=== PATIENT | male | born 1960 | race Caucasian/White ===

== ENCOUNTER 2020-09-20 07:48 | Outpatient (REF) | payer OTHER, SELFPAY | END 2020-09-20 07:49 | disposition home or self-care (01) | LOC: HO.EMPCOV 07:48 | PROVIDERS: Visit Provider Internal Medicine | DX: Z20.822 Contact with and (suspected) exposure to COVID-19 (principal) | CPT/HCPCS: 36415; C9803; U0003; U0005 ==

== ENCOUNTER 2020-10-14 08:05 | Outpatient (REF) | payer OTHER, SELFPAY ==
[2020-10-14 10:13] LABS: MANUAL DIFF FLAG NO
[2020-10-14 10:18] LABS: Basophils Percent Auto 0.5 % (0-2); Eosinophils Absolute Auto 0.1 X10*3/uL (0.0-0.4); Eosinophils Percent Auto 1.3 % (0-4); Hematocrit 39.5 % (42-52); Hemoglobin 13.4 g/dl (14.0-18.0); Imm Gran Abs Auto 0.01 X10*3/uL (0.00-0.03); Imm Gran Pct Auto 0.3 % (0.0-0.4); Lymphocytes Absolute Auto 1.2 X10*3/uL (1.2-4.9); Lymphocytes Percent Auto 33.4 % (20-40); Mean Corpuscular HGB Conc 33.9 g/dl (31.0-36.0); Mean Corpuscular Hemoglobin 31.7 pg (27.0-33.0); Mean Corpuscular Volume 93.4 fL (80-98); Mean Platelet Volume 9.5 fL (9.4-12.4); Monocytes Absolute Auto 0.4 X10*3/uL (0.1-1.2); Monocytes Percent Auto 11.6 % (2-11); Neutrophils Percent Auto 52.9 % (45-73); Platelet Count 234 X10*3/uL (160-400); Red Blood Count 4.23 X10*6/uL (4.60-5.80); Red Cell Distribution Width 12.2 % (11.0-16.0); White Blood Count 3.7 X10*3/uL (4.8-10.8)
[2020-10-14 10:27] LABS: Estimated Average Glucose 114 mg/dL; Hemoglobin A1c % 5.6 %
[2020-10-14 10:49] LABS: Alanine Aminotransferase 20 U/L (0-40); Albumin Level 4.3 g/dL (3.5-5.0); Alkaline Phosphatase 36 U/L (39-117); Anion Gap 12 (12-20); Aspartate Amino Transferase 24 U/L (5-37); Bilirubin Direct 0.2 mg/dL (0.0-0.5); Bilirubin Total 0.5 mg/dL (0.0-1.0); Blood Urea Nitrogen 8 mg/dL (9-16); Calcium 8.3 mg/dL (8.4-10.2); Carbon Dioxide 25 mmol/L (22-29); Chloride 104 mmol/L (96-108); Cholesterol 199 mg/dL; Estimated Glomerular Filt Rate > 60; Glucose Fasting 99 mg/dL (60-99); HDL Cholesterol 70 mg/dL; LDL Cholesterol Calculated 112 mg/dl; Potassium 4.3 mmol/L (3.3-5.1); Sodium 137 mmol/L (135-145); Total Protein 7.2 g/dL (6.5-8.0); Triglycerides 89 mg/dL
[2020-10-14 11:11] LABS: Vitamin D 25-OH Total 13.9 ng/mL (>30)
== END 2020-10-14 08:06 | disposition home or self-care (01) ==
LOC: HO.10HDL 08:05
PROVIDERS: Visit Provider Internal Medicine
DX: Z00.00 Encounter for general adult medical examination without abnormal findings (principal); E78.5 Hyperlipidemia, unspecified; I10 Essential (primary) hypertension
CPT/HCPCS: 36415; 80048; 80061; 80076; 82306; 83036; 85025

== ENCOUNTER 2021-08-24 08:23 | Outpatient (REF) | payer BC, SELFPAY ==
[2021-08-24 12:38] LABS: Prostate Specific Antigen 0.31 ng/mL (<0.05-4.0)
== END 2021-08-24 08:24 | disposition home or self-care (01) ==
LOC: HO.10HDL 08:23
PROVIDERS: Visit Provider Urology
DX: Z12.5 Encounter for screening for malignant neoplasm of prostate (principal); N40.0 Benign prostatic hyperplasia without lower urinary tract symptoms
CPT/HCPCS: 36415; 84153

== ENCOUNTER 2024-10-22 07:53 | Outpatient (REF) | payer BC, SELFPAY ==
--- OUTSIDE RECORDS SUMMARY | 2024-10-22 07:56 | XMS_ITS | Clinical Summary ---
Author Organization [facility] Address [address] [place] [address] Care Team Providers Care Senior Editor Name Role Phone Lolly Vargas MD Primary Care Provider [phone] Allergies No known active allergies Medications losartan (COZAAR) 100 mg tablet 02/25/2019 Active doxazosin (CARDURA) 8 mg tablet 02/26/2019 Active CARTIA XT 300 mg capsule Take 300 mg by mouth daily. 02/25/2019 Active cetirizine (ZyrTEC) 10 mg tablet Take 10 mg by mouth daily. Active acetaminophen (TYLENOL) 325 mg tablet Take 2 tablets (650 mg total) by mouth every 6 hours. 11/18/2020 Active oxyCODONE IR (ROXICODONE) 5 mg tablet Take 1 tablet (5 mg total) by mouth every 6 hours as needed for pain. Max Daily Amount: 20 mg 10 tablet 11/18/2020 Active Active Problems Problem Noted Date Diagnosed Date Environmental allergies 11/18/2020 GERD (gastroesophageal reflux disease) 1 Tubular adenoma 09/30/2020 Hypertension 02/18/2013 Hyperlipidemia 02/18/2013 Leukopenia 02/18/2013 Immunizations Immunization Administration Dates Next Due Tetanus Toxoid, Reduced Diph theria Toxoid, and Acellular Pertussis Vaccine, Adsorbed 09/16/2013 Family History Medical History Relation Name Comments Other Father Paternal histor y of CABG (CABG) /Paternal history of Lung Cancer Other Mother Maternal histor y of Arthritis Other Sister Sororal history of Hypothyroidism Relation Name Status Comments Father Mother Sister Social History Tobacco Use Types Packs/Day Years Used Date Smoking Tobacco: Never Smokeless Tobacco: Never Comments:: Alcohol Use Standard Drinks/Week Comments Yes 2 (1 standard drink = 0.6 oz pur e alcohol) occasional Sex and Gender Information Value Date Recorded Sex Assigned at Male 11/16/2020 2:31 PM EDT Legal Sex Male 10:18 AM EDT Gender Identity Male 11/16/2020 2:31 PM EDT Sexual Orientation Straight 11/16/2020 2: 31 PM EDT Last Filed Vital Signs Vital Sign Reading Time Taken Comments Blood Pressure 153/86 11/18/2020 7:01 AM EDT Pulse 52 11/18/2020 7:01 AM EDT Temperature 36.4 ??C (97.5 ??F) 11/18/2020 7:01 AM ED T Respiratory Rate 18 11/18/2020 7:01 AM EDT Oxygen Saturation 96% 11/18/2020 7:01 AM EDT Inhaled Oxygen Concentration - - Weight 103.8 kg (228 lb 12.8 oz) 11/16/2020 6:20 AM EDT Height 184 cm (6' 0.44 ) 11/16/2020 6:20 AM EDT Body Mass Index 30.65 11/16/2020 6:20 AM EDT Plan of Treatment Health Maintenance Due Date Last Done Comments HIV Screening 1960 Hepatitis C Screening 1960 Pneumococcal Vaccine: 50+ Years (1 of 1 - PCV) 2010 Zoster Vaccines (1 of 2) 2010 Colonoscopy 03/26/2021 09/23/2020, 09/13, 02/26/2020, Additional history exists Basic Metabolic Panel 11/13/2021 11/13/2020 DTaP,Tdap,and Td Vaccines (2 - Td or Tdap) 09/17/2023 09/16/2013 COVID-19 Vaccine (3 - season) 2024 08/09/2020, 07/06/2020 Alcohol/Substance Use Screening 07/16/2024 Depression Screening and Follow-Up 07/16/2024 Social Drivers of Health Annual Screening 07/16/2024 Influenza Vaccine (Season Ended) 2025 04/13/2020, 05/11/2017 RSV Vaccine (60+ years old and patients) (1 - 1-dose 75+ series) 12/18/2035 Hepatitis B Vaccines Aged Out No long er eligible based on patient's age to complete this topic Procedures * Due to [place] [employer] law, this organization might not be sharing negative HIV tests. Procedure Name Priority Date/Time Associated Diagnosis Comments BASIC METABOLIC PANEL Routine 11/13/2020 11:31 AM EDT Tubular adenoma Preop examination COLONOSCOPY 09/23/2020 from Last 3 Months or Most Recently Relevant to Health Maintenance Results * Due to [place] law, this organization might not be sharing negative HIV tests. * (ABNORMAL) Basic Metabolic Panel (11/13/2020 11:31 AM EDT) NA 134(L) 135 - 145 mmol/L 11/13/2020 12:46 PM EDT [facility] K 4.0 3.5 - 5.3 mmol/L 11/13/2020 12:46 PM EDT [facility] Cl 100 97 - 110 mmol/L 11/13/2020 12:46 PM EDT [facility] CO2 28 24 - 32 mmol/L 11/13/2020 12:46 PM EDT [facility] BUN 8 7 - 23 mg/dL 11/13/2020 12:46 PM EDT [facility] Creatinine 0.80 0.60 - 1.30 mg/dL 11/13/2020 12:46 PM EDT [facility] Glucose 93 70 - 99 mg/dL 11/13/2020 12:46 PM EDT [facility] Calcium 9.2 8.7 - 10.7 mg/dL 11/13/2020 12:46 PM EDT [facility] Anion Gap 6 5 - 15 11/13/2020 12:46 PM EDT [facility] eGFR Non- >90 >=90 mL/min/BS A 11/13/2020 12:46 PM EDT [facility] eGFR >90 >=90 mL/min/BS A 11/13/2020 12:46 PM EDT [facility] Comment: Units = mL/min/1.73 m2 Glomerular Filtration Rate (GFR) is estimated based on the CKD-EPI Creatinine Equation (2009). Stage ?Description ? GFR 1 ? Normal ? >=90 mL/min/BSA 2 ? Mildly decreased GFR ? 60-89 mL/min/BSA 3 ? Moderately decreased GFR ? 30-59 mL/min/BSA 4 ? Severely decreased GFR ? 15-29 mL/min/BSA 5 ? Kidney Failure ? <15 mL/min/BSA Blood Structure of peripheral vein / Unknown Venipuncture / Unknown 11/13/2020 11:31 AM EDT 11/13/2020 12:20 PM EDT us Brittanie Whitley SYSTEMS PLANNER LAB BLOOD ORDERABLES Final Re sult [facility] [address] [place] [address], * COLONOSCOPY (09/23/2020) Narrative Procedure Note Mark Mcintosh MD - 09/23/2020 11:00 AM EST Gastroenterology Patient Name: Krishan Henry Procedure Date: 09/23/2020 11:00 AM Date of : 1960 Admit Type: Outpatient Age: 59 Room: Room 4 Gender: Male Note Status: Finalized Attending MD: Mark Mcintosh MD Procedure: Colonoscopy Indications: Follow-up for history of adenomatous polyps in the colon Providers: Mark Mcintosh MD (Doctor) Referring MD: Lolly Vargas MD (Referring MD) Requesting Provider: Medicines: Monitored Anesthesia Care Complications: No immediate complications. Estimated Blood Loss: Estimated blood loss: none. Procedure: After I obtained informed consent, the scope was passed under direct vision. Throughout the procedure, the patient's blood pressure, pulse, and oxygen saturations were monitored continuously. The [id number] OLYMPUS [id number] was introduced through the anus and advancedto the terminal ileum. The colonoscopy was performedwithout difficulty. The patient tolerated the procedure well. Findings: A 7 mm polyp was found in the ascending colon. The polyp was removed with a cold snare. Resection and retrieval were complete. Polypectomy site in descending clonon showed some nodularity likely representing regrowth. Biopsies taken. Biopsies were taken with acold forceps for histology. Impression: - One 7 mm polyp in the ascending colon, removed with a cold snare. Resected and retrieved. Recommendation: - Await pathology results. - Refer to a colo-rectal surgeon in 2 weeks. - Return to primary care physician PRN. Mark Mcintosh MD 09/23/2020 11:47:34 AM This report has been signed electronically. Number of Addenda: 0 Note Initiated On: 09/23/2020 11:00 AM Mark Mcintosh MD PROVATION PROCEDURES Final Re sult from Last 3 Months or Most Recently Relevant to Health Maintenance Insurance [id number] (Work) [place] [address] [place] [id number] [facility] HMO/POS Advance Directives * Full Code (Latest Code Status on File) Date Activated Date Inactivated Comments 11/16/2020 10:06 AM 11/18/2020 2:28 PM Care Teams Senior Editor Relationship Specialty Start Date End Date Lolly Vargas MD PCP - General 02/01/17
--- OUTSIDE RECORDS SUMMARY | 2024-10-22 07:56 | XMS_ITS ---
Author Organization [facility] Address [address] [place] [phone] Care Team Providers Care Engineering Program Analyst Name Role Phone NONE, NONE Primary Care Provider Unavailmike e Carl Forrester, Corin Rosenthal Medications Medication SIG (Take, Route, Frequency, Duration) Notes Start Date End Date Status Na Sulfate-K Sulfate-Mg Sulf 17.5-3.13-1.6 GM/177ML 177 ml per kit as directed Orally 06/19/2024 Active Encounters Encounter Location Date Provider Diagnosis [facility] [address] [place] [phone] 06/19/2024 Corin Henry Jr Plan Of Treatment Medication Medication Name Sig Start Date Stop Date Notes Na Sulfate-K Sulfate-Mg Sulf 17.5-3.13-1.6 GM/177ML 177 ml per kit as directed Orally 06/19/2024 Progress Notes * CORIN HENRY DDOB:[birth year] (63 yo M)Acc No.[id number]:06/19/2024 Patient:?CORIN HENRY :1960???Age:63 Y???Sex:Male Address:[address] [place] [address], [address] * Refills? Start Na Sulfate-K Sulfate-Mg Sulf Solution, 17.5-3.13-1.6 GM/177ML, Orally, 177 ml per kit as directed * true * Date:? Generated for Printi ng/Faxing/eTransmitting on:?10/22/2024 07:56 AM EDT
--- OUTSIDE RECORDS SUMMARY | 2024-10-22 07:56 | XMS_ITS | Patient Health Record ---
Author Organization [facility] Address [address] [place] [phone] Care Team Providers Care Dry Press Operator Name Role Phone NONE, NONE Primary Care Provider Unavailmike e Carl Forrester, Corin Unavailable Reason For Referral No Information Medications Medication SIG (Take, Route, Frequency, Duration) Notes Start Date End Date Status Na Sulfate-K Sulfate-Mg Sulf 17.5-3.13-1.6 GM/177ML 177 ml per kit as directed Orally 06/19/2024 Active Encounters Encounter Location Date Provider Diagnosis [facility] [address] [place] [phone] 06/19/2024 Corin Henry Jr Plan Of Treatment No Information
--- OUTSIDE RECORDS SUMMARY | 2024-10-22 07:56 | XMS_ITS | Referral Summary ---
Author Organization [facility] Address [address] [place] [address] Care Team Providers Care Unindentured Apprentice Name Role Phone Lolly Vargas MD Primary Care Provider [phone]- [phone] Allergies No known active allergies Medications losartan [...] Environmental allergies 11/18/2020 GERD (gastroesophageal reflux disease) Tubular adenoma 09/30/2020 Hypertension 02/18/2013 Hyperlipidemia 02/18/2013 Leukopenia 02/18/2013 Immunizations Immunization Administration Dates Next Due Tetanus Toxoid, Reduced Diph theria Toxoid, and Acellular Pertussis Vaccine, Adsorbed 09/16/2013 Social History Tobacco Use Types Packs/Day Years [...] 11/16/2020 6:20 AM EDT Plan of Treatment Not on file Procedures * Due to [place] [employer] law, this organization might not be sharing negative HIV tests. Procedure Name Priority Date/Time Associated Diagnosis Comments BASIC METABOLIC PANEL Routine 11/13/2020 11:31 AM EDT Tubular adenoma Preop examination COLONOSCOPY 09/23/2020 from Last 3 Months or Most Recently Relevant to Health Maintenance Results * Due to [place] law, this organization might not be sharing negative HIV tests. * (ABNORMAL) Basic Metabolic Panel (11/13/2020 11:31 AM EDT) NA 134(L) 135 - 145 mmol/L 11/13/2020 12:46 PM EDT [facility] K 4.0 3.5 - 5.3 mmol/L 11/13/2020 12:46 PM EDT [facility] Cl 100 97 - 110 mmol/L 11/13/2020 12:46 PM EDT [facility] CO2 28 24 - 32 mmol/L 11/13/2020 12:46 PM EDT [facility] BUN 8 7 - 23 mg/dL 11/13/2020 12:46 PM EDT [facility] Creatinine 0.80 0.60 - 1.30 mg/dL 11/13/2020 12:46 PM EDT [facility] Glucose 93 70 - 99 mg/dL 11/13/2020 12:46 PM EDT [facility] Calcium 9.2 8.7 - 10.7 mg/dL 11/13/2020 12:46 PM EDT [facility] Anion Gap 6 5 - 15 11/13/2020 12:46 PM EDT [facility] eGFR Non- >90 >=90 mL/min/BS A 11/13/2020 12:46 PM EDT [facility] eGFR >90 >=90 mL/min/BS A 11/13/2020 12:46 PM EDT [facility] Comment: Units = mL/min/1.73 [...] EDT 11/13/2020 12:20 PM EDT us Brittanie Mccurdylavonmya CASH ACCOUNTANT LAB BLOOD ORDERABLES Final Re sult [facility] [address] [place] [address], [place] * COLONOSCOPY (09/23/2020) Narrative Procedure Note Mark Mcintosh MD - 09/23/2020 11:00 AM EST Gastroenterology Patient Name: Krishan Hankins Procedure Date: 09/23/2020 11:00 AM Date of [...] and oxygen saturations were monitored continuously. The [id number] OLYMPUS [id number] was introduced through the anus and advancedto [...] 0 Note Initiated On: 09/23/2020 11:00 AM us Mark Mcintosh MD PROVATION PROCEDURES Final Re sult from Last 3 Months or Most Recently Relevant to Health Maintenance Insurance [id number] (Work) [address] [place] [address] [facility] HMO/POS Member Subscriber Plan / Payer (Ef fective 2012-Present) Name:Krishan Hankins Relation to Subscriber:Spouse Name:CHEMO HANKINS Date of :1965 (Home) Address: [place] [address] Payer ID:[id number] (NAIC) Type:Not on file Address: [facility] [id number] [place] [address] Advance Directives * Full Code (Latest Code Status on File) Date Activated Date Inactivated Comments 11/16/2020 10:06 AM 11/18/2020 2:28 PM Care Teams Unindentured Apprentice Relationship Specialty Start Date End Date Lolly Vargas MD PCP - General 02/01/17
[2024-10-22 10:31] LABS: Prostate Specific Antigen 0.52 ng/mL (<0.05-4.0)
== END 2024-10-22 07:54 | disposition home or self-care (01) ==
LOC: HO.10HDL 07:53
PROVIDERS: Visit Provider Urology
DX: Z12.5 Encounter for screening for malignant neoplasm of prostate (principal); N40.0 Benign prostatic hyperplasia without lower urinary tract symptoms
CPT/HCPCS: 36415; 84153